=== PATIENT | male | born 1960 | race Two or more races ===

== ENCOUNTER 2016-05-19 14:46 | Emergency (ER) | payer OTHER ==
[2016-05-19] MEDS ORDERED: DIPHENHYDRAMINE HCL 50 MG/1 ML VIAL ONE (15:43)
[2016-05-19] MEDS ORDERED: FENTANYL 100 MCG/2 ML VIAL ONE (15:43)
[2016-05-19 15:49] LABS: ABSOLUTE NEUTROPHIL COUNT 3.9 K/mm3 (1.8-7.7); BASO # 0.1 K/mm3 (0.0-0.2); EOS # 0.1 (0.0-0.5); EOS % 1.9 % (0.9-2.9); HEMATOCRIT 42.3 % (32.0-52.0); HEMOGLOBIN 14.8 gm/l (14.0-18.0); IMM NEUT% 0.1 % (0-1); LYMPH # 2.4 (1.0-4.8); LYMPH % 34.2 % (15-45); MEAN CELL VOLUME 84.1 fl (80.0-94.0); MEAN CORPUSCULAR HEMOGLOBIN 29.4 pg (27.0-31.0); MEAN PLATELET VOLUME 10.1 fl (7.4-10.4); MONO # 0.5 (0.0-0.8); MONO % 6.6 % (4-12); NEUT % 56.2 % (43-75); PLATELET COUNT 218 K/mm3 (130-400); RED CELL DISTRIBUTION WIDTH 12.7 % (11.5-14.5)
--- NOTE | 2016-05-19 16:24 | CT ---
HEAD CT WITHOUT CONTRAST HISTORY: Right-sided cranial nerve deficit. No intravenous contrast administered. Contiguous axial images acquired from skull base to vertex. COMPARISON: 08/23/2014 BRAIN VOLUME:Grossly unremarkable for patient age. VENTRICULAR SIZE:No gross ventriculomegaly. FOCAL MASS EFFECT:None. ACUTE INTRACRANIAL HEMORRHAGE:None. CALVARIUM:Grossly intact. VISIBLE PARANASAL SINUSES AND MASTOID AIR CELLS:Grossly clear. ORBITS: Evidence of cataract surgery. IMPRESSION: No gross mass effect, ventriculomegaly, or acute intracranial hemorrhage. No CT findings of gross mastoiditis. If there is continued cranial neuropathy, consider eventual postcontrast MRI assessment. Results were electronically transmitted to the electronic medical record at 05/19/2016 at 1621 hours.
[2016-05-19 16:38] LABS: CALCIUM 9.7 mg/dL (8.6-10.3)
== END 2016-05-19 17:13 | disposition home or self-care (01) ==
LOC: ED 14:46
DX: H49.21 Sixth [abducent] nerve palsy, right eye (principal); R51 Headache; I10 Essential (primary) hypertension
CPT/HCPCS: 85025; 80048; 70450; 96375; 99283 ×2; 96374; 93005; J1200; J3010

== ENCOUNTER 2016-08-11 09:54 | Day surgery (SDC) | payer OTHER ==
[~2016-08-11 09:54] MED LIST: LACTATED RINGERS 1,000 ML IV SCH
[2016-08-11] MEDS ORDERED: LACTATED RINGERS 1,000 ML ONE (10:25)
[2016-08-11] MEDS ORDERED: IV START KIT ONE (10:25)
[2016-08-11] MEDS ORDERED: SODIUM CHLORIDE 0.9% 1,000 ML ONE (10:50)
[2016-08-11] MEDS ORDERED: SODIUM CHLORIDE 0.9% 1,000 ML IV SCH (11:30)
[2016-08-11] MEDS ORDERED: PROPOFOL 40 ML IV ONE (11:58)
== END 2016-08-11 13:15 | disposition home or self-care (01) ==
LOC: SDC 09:54
PROVIDERS: ATTEND Internal Medicine Gastroenterology
PROC: 0DJD8ZZ Inspection of Lower Intestinal Tract, Via Natural or Artificial Opening Endoscopic (ICD-10-PCS; principal; 2016-08-11)
DX: Z12.11 Encounter for screening for malignant neoplasm of colon (principal); K57.30 Diverticulosis of large intestine without perforation or abscess without bleeding; Z86.010 Personal history of colon polyps; Z87.891 Personal history of nicotine dependence; E11.9 Type 2 diabetes mellitus without complications; J44.9 Chronic obstructive pulmonary disease, unspecified; Z88.5 Allergy status to narcotic agent; Z79.4 Long term (current) use of insulin; Z79.899 Other long term (current) drug therapy; Z80.0 Family history of malignant neoplasm of digestive organs
CPT/HCPCS: 93005; 45378; J7030